=== PATIENT | female | born 1995 | race Caucasian/White ===

== ENCOUNTER 2024-06-30 20:07 | Emergency (ER) | payer BC, MEDICAID, SELFPAY ==
[2024-06-30 20:09] VITALS: BP 111/64; PULSE 92; RESP 17; TEMP 36.7; O2SAT 100; BMI 27.3
--- NOTE | 2024-06-30 20:13 | ECG_ITS ---
[employer] Test Date: 2024-06-30 Pat Name: Felicity Barraza Department: Room: Gender: Female Remote Inpatient Coder: : 1995 Requested By: Bess Case Order Number: [id number] Sandy MD: Rubin Rossi M.D. Measurements Intervals [place] Rate: 96 P: 72 UT: 225 QRS: 76 QRSD: 82 T: 60 QT: 355 QTc: 450 Interpretive Statements SINUS RHYTHM WITH FIRST DEGREE AV BLOCK POSSIBLE LEFT ATRIAL ENLARGEMENT [-0.1mV P-WAVE IN V1/V2] NONSPECIFIC ST & T-WAVE ABNORMALITY No previous ECG available for comparison Electronically Signed On 07-01-2024 13:51:32 STOPBOARD ASSEMBLER by Rubin Rossi M.D. [email or web address]
--- NOTE | 2024-06-30 20:19 | XRR_ITS ---
PROCEDURE INFORMATION: Exam: XR Chest Exam date and time: 06/30/2024 8:40 PM Age: 28 years old Clinical indication: Other: Palpitations TECHNIQUE: Imaging protocol: Radiologic exam of the chest. Views: 1 view. COMPARISON: No relevant prior studies available. FINDINGS: Lungs: Unremarkable. No consolidation. Pleural spaces: Unremarkable. No pleural effusion. No pneumothorax. Heart/Mediastinum: Unremarkable. No cardiomegaly. Bones/joints: Unremarkable. XR/XR chest 1V portable [id number] IMPRESSION: No acute findings.
[2024-06-30 20:20] VITALS: BP 126/93; PULSE 87; RESP 16; O2SAT 98
--- NOTE | 2024-06-30 20:25 | ED_ITS ---
HPI - Arrhythmia/Palpitations 2 General: Chief Complaint: Arrhythmia/Palpitations Stated Complaint: lightheadedness chest tight Heart beating hard Time Seen by Provider: 06/30/24 20:17 History of Present Illness: 28-year-old female who presents emergenc y room with palpitations and lightheadedness. Says this been going on for some time. She seen her primary care provider. She has a Holter monitor on. Says it was worse today. Related Data Previous Rx's Medication Instructions Recorded cephalexin 500 mg capsule 500 mg PO TID 5 days #15 caps 06/30/24 Allergies Allergy/AdvReac Type Severity Reaction Status Date / Time No Known Allergies Allergy Verified 06/30/24 20:14 Review of Systems 2 Narrative: Constitutional symptoms: Negative except as documented in HPI. Skin symptoms: Negative except as documented in HPI. Eye symptoms: Negative except as documented in HPI. ENMT symptoms: Negative except as documented in HPI. Respiratory symptoms: Negative except as documented in HPI. Cardiovascular symptoms: Negative except as documented in HPI. Gastrointestinal symptoms: Negative except as documented in HPI. Genitourinary symptoms: Negative except as documented in HPI. Musculoskeletal symptoms: Negative except as documented in HPI. Neurologic symptoms: Negative except as documented in HPI. Psychiatric symptoms: Negative except as documented in HPI. Endocrine symptoms: Negative except as documented in HPI. Physical Exam 2 Narrative: EXAM NARRATIVE: General: Alert, no acute distress. Skin: Warm, dry. Head: Normocephalic, atraumatic. Neck: Supple, trachea midline. Eye: Extraocular movements are intact. Ears, nose, mouth and throat: mucosa moist. Cardiovascular: Regular, Normal peripheral perfusion. Respiratory: Lungs are clear to auscultation, respirations are non-labored, breath sounds are equal, Symmetrical chest wall expansion. Gastrointestinal: Soft, Nontender, Non distended Musculoskeletal: Normal ROM, no deformity. Neurological: Alert and oriented, No focal neurological deficit observed. Psychiatric: Cooperative, appropriate mood & affect. Course 2 Vital Signs: Vital signs: Vital Signs Temperature 98.0 F 06/30/24 20:09 Pulse Rate 88 06/30/24 21:00 Respiratory Rate 17 06/30/24 21:00 Blood Pressure 116/75 06/30/24 21:00 Pulse Oximetry 100 06/30/24 21:00 Oxygen Delivery Me thod Room Air 06/30/24 21:00 MDM - Arrhythmia/Palpitations Medical Decision Making EKG: Time 2012. Rate 96. Normal sinus rhythm, No ST-T changes, no ectopy, normal [place] & QRS intervals, This was reviewed and interpreted by myself the ER physician at 2014 Chest x-ray: Electronic monitor overlying central chest. No acute process. No infiltrate. No pneumothorax. This was reviewed and interpreted by myself the emergency room physician. I also reviewed the radiology report. Lab Review: Laboratory results were reviewed and interpreted by myself the emergency room physician. No leukocytosis. No anemia. No renal failure. Patient does have a urinary tract infection with 2+ leukocyte esterase and 21-50 whites trace bacteria. I reviewed the patient's medical record. Reexamination: Patient remained stable. No increased work of breathing. No altered mental status. No focal motor deficits. Assessment and plan: Urinary tract infection Palpitations ? Rocephin in the emergency room - Discharged home - Discussed plan with patient. Answered any questions. - Evaluation and treatment of this problem were appropriate in the emergency setting. Lab Data 06/30/24 20:20 06/30/24 20:20 Laboratory Results WBC 6.39 10^3/uL (3.29-11.43) 06/30/24 20:20 RBC 5.23 10^6/uL (3.85-5.65) 06/30/24 20:20 Hgb 14.60 g/dL (11.27-16.99) 06/30/24 20:20 Hct 45.0 % (36-47) 06/30/24 20:20 MCV 86.0 fl (85-98) 06/30/24 20:20 MCH 27.9 pg (27-33) 06/30/24 20:20 MCHC 32.4 g/dL (30-55) 06/30/24 20:20 RDW 13.2 % (12.1-15.1) 06/30/24 20:20 Plt Count 326 10^3/cmm (157-399) 06/30/24 20:20 MPV 9.4 fL (7.4-10.4) 06/30/24 20:20 Neut % (Auto) 40.4 % 06/30/24 20:20 Lymph % (Auto) 46.5 % 06/30/24 20:20 [place] % (Auto) 10.8 % 06/30/24 20:20 Eos % (Auto) 1.3 % 06/30/24 20:20 Baso % (Auto) 0.8 % 06/30/24 20:20 Neut # (Auto) 2.59 10^3/uL (1.8-7.7) 06/30/24 20:20 Lymph # (Auto) 3.0 10^3/uL (0.8-4.8) 06/30/24 20:20 [place] # (Auto) 0.7 10^3/uL (0.2-0.9) 06/30/24 20:20 Eos # (Auto) 0.1 10^3/uL (0.0-0.8) 06/30/24 20:20 Baso # (Auto) 0.1 10^3/uL (0.0-0.1) 06/30/24 20:20 Nucleated RBC % (auto) 0 % 06/30/24 20:20 Nucleated RBCs # 0.0 /100WBC 06/30/24 20:20 Sodium 142 mmol/L (136-145) 06/30/24 20:20 Potassium 3.7 mmol/L (3.5-5.1) 06/30/24 20:20 Chloride 104 mmol/L (98-107) 06/30/24 20:20 Carbon Dioxide 27 mmol/L (22-29) 06/30/24 20:20 Anion Gap 14.7 (5-19) 06/30/24 20:20 BUN 10 mg/dL (6-20) 06/30/24 20:20 Creatinine 0.8 mg/dL (0.5-0.9) 06/30/24 20:20 GFR Calculation 84.8 mL/min (90-130) L 06/30/24 20:20 Glucose 108 mg/dL (65-115) 06/30/24 20:20 Calculated Osmolality 294 mOsm/kg (285-295) 06/30/24 20:20 Calcium 9.3 mg/dL (8.5-10.5) 06/30/24 20:20 Total Bilirubin 0.2 mg/dL (0.15-1.2) 06/30/24 20:20 AST 19 U/L (0-32) 06/30/24 20:20 ALT 29 U/L (0-33) 06/30/24 20:20 Alkaline Phosphatase 63 U/L (35-105) 06/30/24 20:20 Total Protein 6.9 g/dL (6.6-8.7) 06/30/24 20:20 Albumin 4.5 g/dL (3.5-5.2) 06/30/24 20:20 Globulin 2.4 g/dL (1.3-4.6) 06/30/24 20:20 TSH 2.43 uIU/mL (0.27-4.20) 06/30/24 20:20 HCG, Qual Negative (Negative) 06/30/24 20:36 Urine Color Yellow (Yellow) 06/30/24 20:36 Urine Appearance Cloudy (CLEAR) A 06/30/24 20:36 Urine pH 7.5 (5-7) 06/30/24 20:36 Ur Specific [place] 1.019 (1.005-1.030) 06/30/24 20:36 Urine Protein Negative (Negative) 06/30/24 20:36 Urine Glucose (UA) Negative (Normal) 06/30/24 20:36 Urine Ketones Negative (Negative) 06/30/24 20:36 Urine Blood Negative (Negative) 06/30/24 20:36 Urine Nitrate Negative (Negative) 06/30/24 20:36 Urine Bilirubin Negative (Negative) 06/30/24 20:36 Urine Urobilinogen 1.0 mg/dL (Negative) 06/30/24 20:36 Ur Leukocyte Esterase 2+ (Negative) A 06/30/24 20:36 Urine RBC 0-2 /hpf (0-2) 06/30/24 20:36 Urine WBC 21-50 /hpf (0-5) H 06/30/24 20:36 Ur Squamous Epith Cells 0-5 /hpf (0-5) 06/30/24 20:36 Amorphous Sediment 2+ /hpf 06/30/24 20:36 Urine Bacteria Trace /hpf (NONE) 06/30/24 20:36 Hyaline Casts 0-4 /lpf H 06/30/24 20:36 All radiology interpretation(s) finalized by discharge Discharge Plan Discharge Patient Disposition: Home Clinical Impression: Urinary tract infection, Palpitations Condition: Stable Prescriptions: New cephalexin 500 mg capsule 500 mg PO TID 5 Days Qty: 15 0RF Discharge Orders: Discharge ED (Routine); Ordered 06/30/24 Ordered By: Bess Traylor Referrals: Cayla Carroll MD [Primary Care Provider] - Discharge Diet: Usual diet Discharge Activity: Increase activity as tolerated Patient Instructions: Heart Palpitations (ED), Urinary Tract Infection in Women (ED), Opioid Safety, Pain Management Activity Restrictions/Additional Instructions: Thank you for choosing [facility] for your healthcare needs today. Please realize this is an emergency room and that we are providing you with a medical screening exam and this may not be complete and all inclusive of all the testing and or work up that you may need to determine your ailment or severity of your illness. You have been screened and evaluated and felt safe for discharge. Health conditions do change or evolve sometimes and as such it is important that you follow up with your Primary Doctor to be re checked, 3-5 days is a general good time frame for follow up. You are always welcome to return to the ED for re assessment if your symptoms are worsening or you have new concerns Coding Level of Care Code ED Temperature Inspector for Kamala White
[2024-06-30 20:38] LABS: Basophils # 0.1 10^3/uL (0.0-0.1); Basophils % 0.8 %; Eosinophils # 0.1 10^3/uL (0.0-0.8); Eosinophils % 1.3 %; Lymphocytes % 46.5 %; Mean Corpuscular HGB Conc 32.4 g/dL (30-55); Mean Corpuscular Hemoglobin 27.9 pg (27-33); Mean Platelet Volume 9.4 fL (7.4-10.4); Monocytes # 0.7 10^3/uL (0.2-0.9); Monocytes % 10.8 %; Neutrophils # 2.59 10^3/uL (1.8-7.7); Neutrophils % 40.4 %; Nucleated Red Blood Cells % 0 %; Platelet Count 326 10^3/cmm (157-399); Red Blood Count 5.23 10^6/uL (3.85-5.65); Red Cell Distribution Width 13.2 % (12.1-15.1); White Blood Count 6.39 10^3/uL (3.29-11.43)
[2024-06-30 20:43] LABS: HCG Qualitative Urine. Negative (Negative)
[2024-06-30 20:58] LABS: Alanine Aminotransferase 29 U/L (0-33); Albumin Level 4.5 g/dL (3.5-5.2); Alkaline Phosphatase 63 U/L (35-105); Anion Gap 14.7 (5-19); Aspartate Amino Transferase 19 U/L (0-32); Blood Urea Nitrogen 10 mg/dL (6-20); Calcium 9.3 mg/dL (8.5-10.5); Carbon Dioxide 27 mmol/L (22-29); Chloride 104 mmol/L (98-107); Globulin 2.4 g/dL (1.3-4.6); Glomerular Filtration Rate 84.8 mL/min (90-130); Glucose 108 mg/dL (65-115); Osmolality Calculated 294 mOsm/kg (285-295); Potassium 3.7 mmol/L (3.5-5.1); Sodium 142 mmol/L (136-145); Thyroid Stimulating Hormone 2.43 uIU/mL (0.27-4.20); Total Bilirubin 0.2 mg/dL (0.15-1.2); Total Protein 6.9 g/dL (6.6-8.7)
[2024-06-30 21:00] VITALS: BP 116/75; PULSE 88; RESP 17; O2SAT 100
[2024-06-30 21:05] LABS: Bilirubin Urine Negative (Negative); Blood Urine Negative (Negative); Glucose Urine UA Negative (Normal); Ketones Urine Negative (Negative); Leukocyte Esterase Urine 2+ (Negative); Nitrate Urine Negative (Negative); Protein Urine Negative (Negative); Specific Gravity, Urine 1.019 (1.005-1.030); Urine Appearance Cloudy (CLEAR); Urine Color Yellow (Yellow); pH Urine 7.5 (5-7)
[2024-06-30 21:07] LABS: Bacteria Urine Trace /hpf; Hyaline Casts Urine 0-4 /lpf; RBC Urine 0-2 /hpf (0-2); Squamous Epithelial Cell Urine 0-5 /hpf (0-5); WBC Urine 21-50 /hpf (0-5)
[2024-06-30 21:30] VITALS: BP 105/76; PULSE 81; RESP 16; O2SAT 99
[2024-06-30 21:33] LABS: Add Urine Culture? Yes; Amorphous Sediment Urine 2+ /hpf; UA Slide Review UA Slide Review Perf
[2024-06-30] MEDS: cefTRIAXone 1,000 mg SDV 1000 MG IVP (21:48)
[2024-06-30] MEDS: cephALEXin 500 mg Capsule PO (22:10)
[2024-06-30 22:14] VITALS: BP 115/74; PULSE 75; O2SAT 98
== END 2024-06-30 22:15 | disposition home or self-care (01) ==
PROVIDERS: Emergency Provider Emergency Medicine; PCP Family Medicine
DX: N39.0 Urinary tract infection, site not specified (principal); R00.2 Palpitations
CPT/HCPCS: 71045; 80053; 81001; 81025; 84443; 85025; 87086; 93005; 96374; 99285; J0696

== ENCOUNTER 2024-07-15 06:56 | Outpatient (CLI) | payer BC, MEDICAID, SELFPAY ==
--- NOTE | 2024-07-15 07:19 | USCV_ITS ---
Felicity Barraza Age: 28 Gender: F : 1995 Exam Date: 07/15/2024 07:26 Ordering Phys: Markel Umanzor MD Technologist: Exam Location: [facility] [place] Indication: palp BP: 100 / 62 HR: 74 Rhythm: Sinus Technical Quality: Adequate MEASUREMENTS (Male / Female) Normal Values 2D ECHO LV Diastolic Diameter PLAX 4.5 cm 4.2 - 5.9 / 3.9 - 5.3 cm IVS Diastolic Thickness 0.9 cm 0.6 - 1.0 / 0.6 - 0.9 cm IVS Systolic Thickness 1.2 cm LVPW Diastolic Thickness 1.1 cm 0.6 - 1.0 / 0.6 - 0.9 cm LVPW Systolic Thickness 1.6 cm LVOT Diameter 2.1 cm LV Ejection Fraction 2D Teich 71.7 % LV Ejection Fraction MOD 4C 65.5 % LV Ejection Fraction MOD 2C 70.0 % LV Ejection Fraction 2C AL 69.7 % LA Diameter 3.0 cm RA Systolic Volume 4C AL 41.2 ml RA Systolic Volume 4C MOD 39.1 ml Aorta at Sinotubular Diameter 2.4 cm IVC Diameter 1.8 cm M-MODE LA Ao Ratio MM 1.2 AV Cusp Separation MM 2.2 cm DOPPLER AV Peak Velocity 109.0 cm/s LVOT Peak Velocity 103.0 cm/s AV Area Cont Eq vti 3.1 cm squared AV Area Cont Eq pk 3.2 cm squared MV Peak Velocity 95.0 cm/s MV Area PHT 5.9 cm squared TV Peak E Velocity 114.0 cm/s PV Peak Velocity 88.0 cm/s FINDINGS Left Ventricle Left ventricle is normal in size. LV systolic function is normal with EF of 60-65%. No regional wall motion abnormalities are seen. Right Ventricle Normal in size and function Right Atrium Normal in size Left Atrium Normal in size Mitral Valve Structurally normal mitral valve. Trace mitral regurgitation Aortic Valve Structurally normal aortic valve. No significant stenosis or regurgitation. Tricuspid Valve Mild tricuspid regurgitation. Pulmonic Valve Not well visualized Pericardium Normal Aorta Normal in size IVC Appears to be normal CONCLUSIONS LV systolic function is normal with EF of 60 to 65%. Trace mitral regurgitation. Mild tricuspid regurgitation. No comparison studies are available Les Gleason MD (Electronically Signed) Final Date: 16 July 2024 08:46 S
== END 2024-07-15 06:57 | disposition home or self-care (01) ==
PROVIDERS: PCP Family Medicine; Visit Provider Family Medicine
DX: I95.1 Orthostatic hypotension (principal)
CPT/HCPCS: 93306

== ENCOUNTER 2024-12-22 11:39 | Outpatient (CLI) | payer BC, MEDICAID, SELFPAY ==
--- NOTE | 2024-12-22 | ECG_ITS ---
[employer] Test Date: 2024-12-22 Pat Name: Felicity Barraza Department: Room: Gender: Female Youth Coordinator: : 1995 Requested By: Rubin Rossi Order Number: [id number] Sandy MD: Rubin Rossi M.D. Interpretive Statements Lung unchanged pre/post procedure; Intraprocedure shortess of breath; Symptoms resoled by discharge PROCEDURE: At the baseline, the patient's blood pressure was 110/70 with a heart rate of 87. The baseline electrocardiogram showed normal sinus rhythm with normal ST-Ts.. The patient exercised for 9 minutes on a standard [place] protocol. Patient attained a maximum heart rate of 170 beats per minute(90% of the maximum predicted heart rate) with a blood pressure at the peak exercise of 128/52 mm Hg. The EKG at the peak exercise revealed. Patient did not have any chest pain or any significant cardiac arrhythmias with the exercise During the recovery phase, there were no new changes. Blood pressure at the end of the recovery phase was 107/53 mm Hg with a heart rate of 99 per minute. CONCLUSION: 1. Normal EKG response to treadmill exercise 2. No exercise-induced chest pain or cardiac arrhythmia 3. Fair exercise tolerance, attained a maximum of 10.2 METs Electronically Signed On 12-27-2024 10:41:01 CDT by Rubin Rossi M.D. [email or web address]
[2024-12-22 11:50] VITALS: BMI 28.1
[2024-12-22 12:18] VITALS: BP 107/53; PULSE 99
== END 2024-12-22 11:40 | disposition home or self-care (01) ==
LOC: CDL 11:43
PROVIDERS: PCP Family Medicine; Visit Provider Internal Medicine Cardiovascular Disease
DX: R00.2 Palpitations (principal)
CPT/HCPCS: 93017